=== PATIENT | female | born 1945 | race Caucasian/White ===

== ENCOUNTER → 2019-03-14 | Outpatient (CLI) | payer MEDICARE ==
--- NOTE | 2019-03-14 13:57 | Diagnostic Imaging Report ---
EXAMINATION: HIP LEFT 2-3 VW (+/- PELVIS) INDICATION: Left hip pain COMPARISON: None FINDINGS: 4 views of the left hip and pelvis demonstrate no acute fracture or dislocation. There are moderate degenerative changes of both right and left hip joints with joint space narrowing and osteophyte formation. There are degenerative changes of the lower lumbar spine. Phleboliths in the pelvis. Nonobstructive bowel gas pattern. IMPRESSION: No acute osseous injury. 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 Signed by: Aaron Joyner MD on 03/14/2019 1:53 PM
== END ==
LOC: RAD 12:16
PROVIDERS: ATTEND Family Medicine
DX: M25.552 Pain in left hip (principal); R10.2 Pelvic and perineal pain